=== PATIENT | female | born 1960 | race Caucasian/White ===

== ENCOUNTER → 2023-12-29 13:59 | Outpatient (REF) | payer OTHER, SELFPAY | LOC: HWWDC 13:59 | PROVIDERS: ATTENDING PHYSICIAN Family Medicine | DX: Z12.31 Encounter for screening mammogram for malignant neoplasm of breast (principal) | CPT/HCPCS: 77063; 77067 ==

== ENCOUNTER 2024-02-12 07:07 | Emergency (ER) | payer OTHER, SELFPAY ==
[2024-02-12 07:16] VITALS: BP 174/105
--- NOTE | 2024-02-12 09:58 | ED.GENMED ---
History of Present Illness
General
Chief Complaint: Musculo-Skeletal Complaint
Source: patient
Exam Limitations: none
Time Seen by Provider: 02/12/24 08:08
Nursing documentation reviewed up to this point in time: agreed with
Travel History
Have you had any contact with someone who has COVID-19?: No
Do you have any symptoms of coronavirus? Fever > 100 degrees, chills, cough, shortness of breath, sore throat, loss of taste or smell, muscle aches, or headache?: No
History of Present Illness
History of Present Illness:
63-year-old female past medical history of hypertension hyperlipidemia presenting to the emergency department today with concerns of left-sided posterior knee discomfort. Claims has been worsening over the past few days denies any specific
injuries. Claims that she may have some mild swelling denies any fevers redness or warmth.
Review of Systems
Review of Systems
Allergies reviewed?: Yes
All Other Systems: ROS reviewed and negative except as documented in HPI and ROS
Phy Exam
Physical Exam
Physical Exam:
GENERAL: Alert , in no apparent distress
EYE: pupils equal and reactive
NECK: Supple, no significant adenopathy.
ENT: o/p clr, mmm.
CARDIAC: Regular rate and rhythm .
LUNGS: Clear breath sounds bilaterally, no acute respiratory distress, no wheezes/rales/rhonchi
ABDOMEN: Soft, without focal tenderness, no r/g, no cvat
NEUROLOGICAL: Alert and oriented, no focal neuro deficits
SKIN: Warm and dry, skin intact.
MUSCULOSKELETAL: Left lower extremity without obvious swelling but significant amount of superficial varicosities mild tenderness to the popliteal fossa without obvious swelling no redness or warmth good range of motion of the knee ankle. No edema,
well perfused.
PSYCH: Normal and appropriate interaction.
Course
Orders/Labs/Results
Orders:
Orders
02/12/24 08:38
CR Knee - Left 4 Or More View* Urgent
Comment:
Reason For Exam: knee pain
Venous Doppler Lwr Ext Left [US Periph Venous LOWER Ext LT] Urgent
Comment:
Reason For Exam: leg swelling pain
Vital Signs
Initial and Last Documented VS:
Initial Vital Signs
Temp Pulse Resp BP Pulse Ox
98.0 F 78 18 174/105 98
02/12/24 07:16 02/12/24 07:16 02/12/24 07:16 02/12/24 07:16 02/12/24 07:16
Last Documented Vital Signs
Temp Pulse Resp BP Pulse Ox
98.0 F 78 18 174/105 98
02/12/24 07:16 02/12/24 07:16 02/12/24 07:16 02/12/24 07:16 02/12/24 07:16
MDM/Problems Addressed
MDM/Problems Addressed:
63-year-old female presenting to the emergency department today with concerns of left-sided knee discomfort over the past few days. No specific inciting event or injury. No redness or warmth on examination. Knee has good range of motion as well
as the ankle. Normal distal pulses. She is concerned of swelling and has significant varicosities ultrasound was ordered to rule out DVT which was normal. X-ray without emergent findings. Patient with potential sprain or mild injury to the knee
patient was advised for rest ice compression elevation as well as close orthopedic follow-up for ongoing symptoms.
*Critical Care Note
Total Time (30-74mins, 75-104mins- exclusive of procedures): Not Applicable
ED Attending Note
-
Portions of this chart may have been created with voice recognition software.� Occasional wrong word or��sound alike� substitutions may have occurred due to the inherent limitations of voice recognition software.
Discharge Plan
Departure
Patient Disposition: Home (Routine Discharge)
Date of Disposition: 02/12/24
Time of Disposition: 10:00
Patient with high blood pressure during this ER visit?: No
Condition: Good
Covid-19: Not Applicable
Discharge Problem:
Left knee sprain
Instructions: Knee Sprain (DC)
Referrals:
Nighat Alcazar DO [Active] - Follow up in 10 days
Dante Truong MD [Family Provider] -
Activity Restrictions/Additional Instructions:
You came to the emergency department today with concerns of left-sided knee pain. You had a reassuring assessment with normal ultrasound and x-ray. Please rest ice compress and elevate follow-up with orthopedics as needed. Return to the emergency
department for any worsening, new or concerning symptoms.
Interventions
Interventions:
*Risk Screen - Suicide Last Done: 02/12/24 07:16
*General Assessment Last Done: 02/12/24 07:16
*Neglect/Abuse Screening Last Done: 02/12/24 07:16
Discharge Date and Time
Print Language: [id number]
== END 2024-02-12 10:40 | disposition home or self-care (01) ==
LOC: EMR 07:07
PROVIDERS: EMERGENCY PHYSICIAN Emergency Medicine; FAMILY PHYSICIAN Family Medicine
DX: S83.92XA Sprain of unspecified site of left knee, initial encounter (principal); X58.XXXA Exposure to other specified factors, initial encounter; M79.605 Pain in left leg; I10 Essential (primary) hypertension; E78.5 Hyperlipidemia, unspecified; I83.92 Asymptomatic varicose veins of left lower extremity
CPT/HCPCS: 99284; 73564; 93971

== ENCOUNTER → 2024-02-29 15:55 | Outpatient (REF) | payer OTHER, SELFPAY | LOC: MRI 3T 15:55 | PROVIDERS: ATTENDING PHYSICIAN Orthopaedic Surgery; FAMILY PHYSICIAN Family Medicine | DX: M25.562 Pain in left knee (principal) | CPT/HCPCS: 73721 ==

== ENCOUNTER 2024-04-03 06:33 | Outpatient (RCR) | payer OTHER, SELFPAY | END 2024-04-03 23:59 | disposition home or self-care (01) | LOC: RPT 06:33 | PROVIDERS: ATTENDING PHYSICIAN Orthopaedic Surgery; FAMILY PHYSICIAN Family Medicine | DX: S83.242D Other tear of medial meniscus, current injury, left knee, subsequent encounter (principal); S83.412D Sprain of medial collateral ligament of left knee, subsequent encounter; M76.52 Patellar tendinitis, left knee; M76.32 Iliotibial band syndrome, left leg | CPT/HCPCS: 97110; 97162; 97535 ==

== ENCOUNTER 2024-05-02 15:09 | Outpatient (RCR) | payer OTHER, SELFPAY | END 2024-05-02 16:38 | disposition home or self-care (01) | LOC: RPT 15:09 | PROVIDERS: ATTENDING PHYSICIAN Orthopaedic Surgery; FAMILY PHYSICIAN Family Medicine | DX: S83.242D Other tear of medial meniscus, current injury, left knee, subsequent encounter (principal); S83.412D Sprain of medial collateral ligament of left knee, subsequent encounter; M76.52 Patellar tendinitis, left knee; M76.32 Iliotibial band syndrome, left leg; M25.562 Pain in left knee | CPT/HCPCS: 97010; 97110; 97535 ==

== ENCOUNTER → 2024-06-28 09:25 | Outpatient (REF) | payer OTHER, SELFPAY | LOC: HWRAD 09:25 | PROVIDERS: ATTENDING PHYSICIAN Family Medicine | DX: R94.5 Abnormal results of liver function studies (principal) | CPT/HCPCS: 76700 ==